=== PATIENT | male | born 1935 | race Caucasian/White ===

== ENCOUNTER 2020-09-27 06:30 | Day surgery (SDC) | payer OTHER ==
--- NOTE | 2020-09-27 11:16 | NUR ---
DISCHARGE SUMMARY PT A&OX4, VSS, LEFT WITH TO GO HOME WITH ALL PERSONAL POSSESSIONS, IV DC'D. Patient up to Ambulate independently. Gait steady. Discharge instructions reviewed with patient. Patient verbalizes understanding. Copy given to patient to take home.
== END 2020-09-27 23:21 | disposition home or self-care (01) ==
LOC: ORD 06:30 → CT 06:30 → ORD 07:30 → CT 08:00 → ORD 23:21
DX: I25.10 Atherosclerotic heart disease of native coronary artery without angina pectoris (principal); I11.0 Hypertensive heart disease with heart failure; I50.9 Heart failure, unspecified; I42.9 Cardiomyopathy, unspecified; Z87.891 Personal history of nicotine dependence; Z79.01 Long term (current) use of anticoagulants; Z79.899 Other long term (current) drug therapy
CPT/HCPCS: 75574; Q9967